=== PATIENT | male | born 1970 | race Caucasian/White ===

== ENCOUNTER → 2024-07-24 | Day surgery (SDC) | payer OTHER ==
[~2024-07-24] MED LIST: Midazolam 1 MG/ML 2 ML SDV IV ONE; Midazolam 1 MG/ML 2 ML SDV ONE; fentaNYL 100 MCG/2 ML SDV IV ONE; fentaNYL 100 MCG/2 ML SDV ONE
[2024-07-24] MEDS: Dextrose 5%-0.45% NaCl 1,000 ML IV SCH (05:58)
[2024-07-24] MEDS: fentaNYL 100 MCG/2 ML SDV IV ONE ×2 (06:23→06:24)
[2024-07-24] MEDS: Midazolam 1 MG/ML 2 ML SDV IV ONE ×6 (06:24→06:32)
[2024-07-24] MEDS: Sodium Chloride 0.9% 1,000 ML IV SCH (06:33)
[2024-07-24 08:27] VITALS: BP 109/69; PULSE 65
== END | disposition home or self-care (01) ==
LOC: DL.ENDO 05:29
PROVIDERS: ATTEND Internal Medicine Gastroenterology
DX: Z12.11 Encounter for screening for malignant neoplasm of colon (principal)
CPT/HCPCS: J2250; J3010; J7030; J7799